=== PATIENT | female | born 2000 | race Caucasian/White ===

== ENCOUNTER 2018-08-09 09:48 | Emergency (ER) | payer BC ==
--- NOTE | 2018-08-09 10:29 | EDM.PDOC ---
ED HPI GENERAL MEDICAL PROBLEM - General Chief Complaint: Exposure to Heat or Cold Stated Complaint: KHAN BITE,BLISTERS [id number] Face/Facial Pain Score (Numeric/FACES): 8 - Related Data Allergies Allergy/AdvReac Type Severity Reaction Status Date / Time No Known Allergies Allergy Verified 08/09/18 09:55 Home Meds: Home Meds . [No Known Home Meds] 08/09/18 [History] Past Medical History - Past Health History Medical/Surgical History: Denies Medical/Surgical History HEENT History: Reports: None Cardiovascular History: Reports: None Respiratory History: Reports: None Gastrointestinal History: Reports: None Genitourinary History: Reports: None SHREDDER TENDER History: Reports: None Musculoskeletal History: Reports: None Neurological History: Reports: None Psychiatric History: Reports: None Endocrine/Metabolic History: Reports: None Hematologic History: Reports: None Immunologic History: Reports: None Oncologic (Cancer) History: Reports: None Dermatologic History: Reports: None - Infectious Disease History Infectious Disease History: Reports: None - Past Surgical History Head Surgeries/Procedures: Reports: None Social & Family History - Family History Family Medical History: Noncontributory - Tobacco Use Smoking Status *Q: Never Smoker - Caffeine Use Caffeine Use: Reports: Coffee - Recreational Drug Use Recreational Drug Use: No Course - Vital Signs Last Recorded V/S: Last Vital Signs Temp 98.7 F 08/09/18 09:56 Pulse 70 08/09/18 09:56 Resp 16 08/09/18 09:56 BP Pulse Ox 100 08/09/18 09:56 Departure - Discharge Information
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
== END 2018-08-09 11:01 | disposition home or self-care (01) ==
LOC: DL.ED 09:48
DX: S00.82XA Blister (nonthermal) of other part of head, initial encounter (principal); X31.XXXA Exposure to excessive natural cold, initial encounter
CPT/HCPCS: 99283